=== PATIENT | female | born 1970 | race American Indian/Alaskan Native ===

== ENCOUNTER 2018-10-23 20:19 | Emergency (ER) | payer MEDICAID ==
--- NOTE | 2018-10-23 20:53 | Event Note ---
ED Screening Note Date of service: 10/23/18 Time: 20:51 ED Screening Note: This is a 47 y.o. F. that presents with an abscess to labia x 2 days. Patient reports discharge yesterday. This initial assessment/diagnostic orders/clinical plan/treatment(s) is/are subject to change based on patients health status, clinical progression and re- assessment by fellow clinical providers in the ED. Further treatment and workup at subsequent clinical providers discretion. Patient/guardian urged not to elope from the ED as their condition may be serious if not clinically assessed and managed. Initial orders include:
[2018-10-23] MEDS ORDERED: NORCO 5/325 PO ONE (22:42)
[2018-10-23] MEDS ORDERED: XYLOCAINE 1% 20 mL INFILTRATI ONE (22:43)
--- NOTE | 2018-10-23 22:59 | Emergency Department Report ---
ED Female HPI - General Chief complaint: Urogenital-Female Stated complaint: VAGINAL BOIL Time Seen by Provider: 10/23/18 20:51 Source: patient Mode of arrival: Ambulatory Limitations: No Limitations - History of Present Illness Initial comments: There is a 47-year-old -[place] female who presents for recurrent Bartholin cyst states [place]. Draining pus at this time there is no fevers no chills no nausea vomiting last menstrual cycle was 09/14/2018 patient is status post tubal ligation Complaint: vaginal discharge Onset/Timin -: days(s) Location: labia Severity: moderate Severity scale (0 -10): 5 Quality: sharp Consistency: constant Improves with: none Worsens with: urination Are you Now?: No Last Menstrual Period: 10/15/18 EDC: 07/22/19 - Related Data Sexually active: Yes Previous Rx's Medication Instructions Recorded Last Taken Type Clindamycin [Clindamycin CAP] 300 mg PO Q6H 10 Days #40 capsule 10/24/18 Unknown Rx traMADol [Ultram] 50 mg PO Q6HR PRN #12 tablet 10/24/18 Unknown Rx Allergies Allergy/AdvReac Type Severity Reaction Status Date / Time No Known Allergies Allergy Verified 10/23/18 20:21 ED Review of Systems ROS: Stated complaint: VAGINAL BOIL Other details as noted in HPI Constitutional: denies: chills, fever Eyes: denies: eye pain, eye discharge, vision change ENT: denies: ear pain, throat pain Respiratory: denies: cough, shortness of breath, wheezing Cardiovascular: denies: chest pain, palpitations Endocrine: no symptoms reported Gastrointestinal: denies: abdominal pain, nausea, diarrhea Genitourinary: other (bar all tholin cyst ). denies: urgency, dysuria, discharge Musculoskeletal: denies: back pain, joint swelling, arthralgia Skin: denies: rash, lesions Neurological: denies: as per HPI, headache, weakness, paresthesias Psychiatric: denies: anxiety, depression Hematological/Lymphatic: denies: easy bleeding, easy bruising ED Past Medical Hx - Social History Smoking Status: Never Smoker Substance Use Type: None - Medications Home Medications: Home Medications Medication Instructions Recorded Confirmed Last Taken Type Clindamycin [Clindamycin CAP] 300 mg PO Q6H 10 Days #40 capsule 10/24/18 Unknown Rx traMADol [Ultram] 50 mg PO Q6HR PRN #12 tablet 10/24/18 Unknown Rx ED Physical Exam - General Limitations: No Limitations General appearance: alert, in no apparent distress - Head Head exam: Present: atraumatic, normocephalic - Eye Eye exam: Present: normal appearance, PERRL, EOMI Pupils: Present: normal accommodation - ENT ENT exam: Present: normal orophraynx, mucous membranes moist - Neck Neck exam: Present: normal inspection, full ROM. Absent: tenderness, lymphadenopathy, thyromegaly - Respiratory Respiratory exam: Present: normal lung sounds bilaterally. Absent: respiratory distress, wheezes, stridor, chest wall tenderness - Cardiovascular Cardiovascular Exam: Present: regular rate, normal rhythm, normal heart sounds. Absent: systolic murmur, diastolic murmur, rubs, gallop - GI/Abdominal GI/Abdominal exam: Present: soft, normal bowel sounds. Absent: distended, tenderness, guarding, rebound, rigid, bruit, hernia - Rectal Rectal exam: Present: deferred - Extremities Exam Extremities exam: Present: normal inspection, full ROM, normal capillary refill. Absent: tenderness, calf tenderness - Back Exam Back exam: Present: normal inspection, full ROM. Absent: tenderness, CVA tenderness (R), CVA tenderness (L), muscle spasm, paraspinal tenderness, rash noted - Neurological Exam Neurological exam: Present: alert, oriented X3, CN II-XII intact, normal gait, reflexes normal. Absent: motor sensory deficit - Expanded Neurological Exam Expanded Patient oriented to: Present: person, place, time Speech: Present: fluid speech - Psychiatric Psychiatric exam: Present: normal affect, normal mood - Skin Skin exam: Present: warm, dry, intact, normal color. Absent: rash ED Course Vital Signs 10/23/18 10/23/18 20:23 23:31 Temperature 98.6 F Pulse Rate 88 Respiratory 16 18 Rate Blood Pressure 158/79 O2 Sat by Pulse 99 Oximetry - I & D Right Vagina Type of Procedure: Simple Site: right labia Blade Size: 11 I & D Procedure: betadine prep Progress: Right labial Bartholin's cyst minimal 2 cm erythematous fluctuant able to touch site clean with Betadine solution anesthesia 1% lidocaine 2 mL incision with 11 blade scalpel times one month with blunt forceps success moderate improvement drainage with 20 mL sterile saline wound left open patient given wound care i nstructions sterile peripad for drainage all bleeding is controlled patient tolerated procedure with minimal distress ED Medical Decision Making - Medical Decision Making This is a bartholin cyst see procedure note patient discharged on bleeding is controlled patient DC'd to home in stable condition follow with PCP in 2-3 days will DC home with prescription for clindamycin, Ultram PRN pain. Critical care attestation.: If time is entered above; I have spent that time in minutes in the direct care of this critically ill patient, excluding procedure time. ED Disposition Clinical Impression: Bartholin cyst Disposition: DC-01 TO HOME OR SELFCARE Is pt being admited?: No Does the pt Need Aspirin: No Condition: Stable Instructions: Bartholin Cyst (ED), Incision and Drainage (ED) Prescriptions: Clindamycin [Clindamycin CAP] 300 mg PO Q6H 10 Days #40 capsule traMADol [Ultram] 50 mg PO Q6HR PRN #12 tablet PRN Reason: Pain Referrals: PRIMARY CAREMD [Primary Care Provider] - 3-5 Days GELACIO MCKEON MD [Staff Physician] - 3-5 Days Forms: Work/School Release Form(ED) Time of Disposition: 00:09
[2018-10-24 00:10] LABS: Bilirubin,Urine NEG (Negative); Blood,Urine NEG (Negative); Color,Urine Yellow (Yellow); Protein,Urine <15 mg/dL mg/dL (Negative); Urobilinogen,Urine < 2.0 mg/dL (<2.0)
[2018-10-24 00:18] LABS: Mucus,Urine Few /HPF
[2018-10-24 00:22] LABS: RBC,Urine < 1.0 /HPF (0.0-6.0); WBC,Urine < 1.0 /HPF (0.0-6.0)
[2018-10-24 00:28] VITALS: BP 148/86
== END 2018-10-24 00:26 | disposition home or self-care (01) ==
LOC: ED 20:19
DX: N75.1 Abscess of Bartholin's gland (principal)
CPT/HCPCS: 81001

== ENCOUNTER 2020-11-29 07:44 | Emergency (ER) | payer MEDICAID, OTHER ==
[2020-11-29 08:08] VITALS: BP 178/106
[2020-11-29] MEDS ORDERED: ACETAMINOPHEN 500 MG TAB PO ONE (08:08)
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
== END 2020-11-29 09:50 | disposition home or self-care (01) ==
LOC: ED 07:44
DX: S13.4XXA Sprain of ligaments of cervical spine, initial encounter (principal); R51.9 Headache, unspecified; I10 Essential (primary) hypertension; Z79.899 Other long term (current) drug therapy; V89.2XXA Person injured in unspecified motor-vehicle accident, traffic, initial encounter; Y93.89 Activity, other specified; Y92.488 Other paved roadways as the place of occurrence of the external cause; Y99.8 Other external cause status
CPT/HCPCS: 70450; 72125; 99283

== ENCOUNTER 2021-05-09 07:54 | Emergency (ER) | payer MEDICAID, OTHER ==
[2021-05-09 08:20] VITALS: BP 137/87
[2021-05-09] MEDS ORDERED: ASPIRIN 325 MG TAB PO ONE (08:20)
[2021-05-09] MEDS ORDERED: KETOROLAC 60 MG/2 ML INJ IM ONE (09:01)
--- NOTE | 2021-05-09 09:05 | XRay Report ---
CHEST 2 VIEWS INDICATION / CLINICAL INFORMATION: chest pain. COMPARISON: None available. FINDINGS: SUPPORT DEVICES: None. HEART / MEDIASTINUM: No significant abnormality. LUNGS / PLEURA: No significant pulmonary or pleural abnormality. No pneumothorax. ADDITIONAL FINDINGS: No significant additional findings. IMPRESSION: 1. No acute findings. Signer Name: Oseas Layne MD Signed: 05/09/2021 9:00 AM Workstation Name: [id number]
--- NOTE | 2021-05-09 09:10 | Emergency Department Report ---
ED Chest Pain HPI - General Chief Complaint: Chest Pain Stated Complaint: CHEST PAIN/BACK PAIN Time Seen by Provider: 05/09/21 08:37 Source: patient Mode of arrival: Ambulatory Limitations: No Limitations - History of Present Illness Initial Comments: 50-year-old female with a past medical history of hypertension and obesity presents to the hospital with complaints of left-sided chest pain and left-sided back pain since this a.m. Patient works at [employer]. 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 It felt like a constant cramp worse with movement and palpation. Patient denies associated symptoms of shortness of breath, nausea, vomiting, diaphoresis, history of PE/DVT, calf tenderness, or leg edema. - Related Data Previous Rx's Medication Instructions Recorded Last Taken Type Clindamycin [Clindamycin CAP] 300 mg PO Q6H 10 Days #40 capsule 10/24/18 Unknown Rx HYDROcodone/APAP 5-325 [[place] 1 each PO Q6H #12 tablet 08/30/19 Unknown Rx 5-325 mg TAB] Naproxen 500 mg PO Q12H PRN #12 tablet 11/29/20 Unknown Rx Cyclobenzaprine [Flexeril 10 MG 10 mg PO TID PRN #15 tablet 05/09/21 Unknown Rx TAB] Ibuprofen [Motrin] 800 mg PO Q8HR PRN #30 tablet 05/09/21 Unknown Rx traMADoL [Ultram 50 MG tab] 50 mg PO Q6HR PRN #12 tablet 05/09/21 Unknown Rx Allergies Allergy/AdvReac Type Severity Reaction Status Date / Time No Known Allergies Allergy Verified 05/09/21 08:43 Heart Score - HEART Score History: Slightly suspicious EKG: Normal Age: < 45 Risk factors: > 3 risk factors or hx of atherosclerotic disease Troponin: < normal limit HEART Score: 2 - EKG Read Time Time EKG Completed: 08:05 EKG Read Time: 08:10 ED Review of Systems ROS: Stated complaint: CHEST PAIN/BACK PAIN Other details as noted in HPI Comment: All other systems reviewed and negative ED Past Medical Hx - Past Medical History Previous Medical History?: Yes Hx Hypertension: Yes - Surgical History Past Surgical History?: No - Family History Family history: CAD/ND - Social History Smoking Status: Never Smoker Substance Use Type: Alcohol, Prescribed - Medications Home Medications: Home Medications Medication Instructions Recorded Confirmed Last Taken Type Clindamycin [Clindamycin CAP] 300 mg PO Q6H 10 Days #40 capsule 10/24/18 Unknown Rx HYDROcodone/APAP 5-325 [[place] 1 each PO Q6H #12 tablet 08/30/19 Unknown Rx 5-325 mg TAB] Naproxen 500 mg PO Q12H PRN #12 tablet 11/29/20 Unknown Rx Cyclobenzaprine [Flexeril 10 MG 10 mg PO TID PRN #15 tablet 05/09/21 Unknown Rx TAB] Ibuprofen [Motrin] 800 mg PO Q8HR PRN #30 tablet 05/09/21 Unknown Rx traMADoL [Ultram 50 MG tab] 50 mg PO Q6HR PRN #12 tablet 05/09/21 Unknown Rx ED Physical Exam - General Limitations: No Limitations - Other Other exam information: General: No acute distress Head: Atraumatic Eyes: normal appearance ENT: Moist mucous membranes Neck: Normal appearance, no midline tenderness Chest: Clear to auscultation bilaterally, posterior left thoracic tenderness to palpation, left chest wall pain with movement CV: Regular rate and rhythm Abdomen: Soft, normal bowel sounds, nontender, nondistended, no rebound or guarding Back: Normal inspection Extremity: Normal inspection, full range of motion, no calf tenderness or leg edema Neuro: Alert O x 3, no facial asymmetry, speech clear, no gross motor sensory deficit Psych: Appropriate behavior Skin: No rash ED Course Vital Signs 05/09/21 08:13 Temperature 97.8 F Pulse Rate 76 Respiratory 20 Rate Blood Pressure 137/87 O2 Sat by Pulse 99 Oximetry BRANDI score - Brandi Score Age > 65: (0) No Aspirin use within the Past 7 Days: (0) No 3 or more CAD Risk Factors: (0) No 2 or more Angina events in past 24 hrs: (0) No Known CAD with more than 50% Stenosis: (0) No Elevated Cardiac Markers: (0) No ST Deviation Greater than 0.5mm: (0) No BRANDI Score: 0 ED Medical Decision Making - Lab Data Result diagrams: 05/09/21 08:38 05/09/21 08:38 Lab Results 05/09/21 05/09/21 Range/Units 08:38 08:38 WBC 6.4 (4.5-11.0) K/mm3 RBC 4.35 (3.65-5.03) M/mm3 Hgb 11.2 (10.1-14.3) gm/dl Hct 35.3 (30.3-42.9) % MCV 81 (79-97) fl MCH 26 L (28-32) pg MCHC 32 (30-34) % RDW 16.8 H (13.2-15.2) % Plt Count 251 (140-440) K/mm3 Lymph % (Auto) 20.3 (13.4-35.0) % Early % (Auto) 8.0 H (0.0-7.3) % Eos % (Auto) 1.2 (0.0-4.3) % Baso % (Auto) 0.5 (0.0-1.8) % Lymph # (Auto) 1.3 (1.2-5.4) K/mm3 Early # (Auto) 0.5 (0.0-0.8) K/mm3 Eos # (Auto) 0.1 (0.0-0.4) K/mm3 Baso # (Auto) 0.0 (0.0-0.1) K/mm3 Seg Neutrophils % 70.0 (40.0-70.0) % Seg Neutrophils # 4.5 (1.8-7.7) K/mm3 Sodium 137 (137-145) mmol/L Potassium 3.9 (3.6-5.0) mmol/L Chloride 105.6 (98-107) mmol/L Carbon Dioxide 21 L (22-30) mmol/L Anion Gap 14 mmol/L BUN 18 H (7-17) mg/dL Creatinine 0.6 (0.6-1.2) mg/dL Estimated GFR > 60 ml/min BUN/Creatinine Ratio 30 % Glucose 95 (65-100) mg/dL Calcium 9.7 (8.4-10.2) mg/dL Total Bilirubin < 0.20 (0.1-1.2) mg/dL AST 13 (5-40) units/L ALT 24 (7-56) units/L Alkaline Phosphatase 82 (35-129) units/L Troponin T < 0.010 (0.00-0.029) ng/mL Total Protein 6.8 (6.3-8.2) g/dL Albumin 3.7 L (3.9-5) g/dL Albumin/Globulin Ratio 1.2 % - EKG Data -: EKG Interpreted by Sd EKG shows normal: sinus rhythm, ST-T waves (No STEMI) Rate: normal - Radiology Data Radiology results: report reviewed CHEST 2 VIEWS INDICATION / CLINICAL INFORMATION: chest pain. COMPARISON: None available. FINDINGS: SUPPORT DEVICES: None. HEART / MEDIASTINUM: No significant abnormality. LUNGS / PLEURA: No significant pulmonary or pleural abnormality. No pneumothorax. ADDITIONAL FINDINGS: No significant additional findings. IMPRESSION: 1. No acute findings. 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 Pain is reproducible with movement and palpation. Patient has a low heart score with a normal EKG and negative troponin. Chest x- ray was negative. Vital signs unremarkable she will be treated symptomatically. Follow-up advised Critical Care Time: No Critical care attestation.: If time is entered above; I have spent that time in minutes in the direct care of this critically ill patient, excluding procedure time. ED Disposition Clinical Impression: Strain of chest wall Disposition: 01 HOME / SELF CARE / HOMELESS Is pt being admited?: No Does the pt Need Aspirin: No Condition: Stable Instructions: Chest Wall Pain Additional Instructions: Take the medication as prescribed. Follow-up with your doctor or doctor/clinic provided. Return if symptoms worsen as indicated by your discharge instructions. Prescriptions: Cyclobenzaprine [Flexeril 10 MG TAB] 10 mg PO TID PRN #15 tablet PRN Reason: Muscle Spasm Ibuprofen [Motrin] 800 mg PO Q8HR PRN #30 tablet PRN Reason: Pain , Severe (7-10) traMADoL [Ultram 50 MG tab] 50 mg PO Q6HR PRN #12 tablet PRN Reason: Pain Referrals: Your, PMD [Other] - 3-5 Days [facility] [Provider Group] - 3-5 Days ONRM COOPER MD [Staff Physician] - 3-5 Days Forms: Work/School Release Form(ED) Time of Disposition: 10:41
[2021-05-09 10:02] LABS: Alanine Aminotransferase 24 units/L (7-56); Albumin 3.7 g/dL (3.9-5); Blood Urea Nitrogen 18 mg/dL (7-17); Calcium 9.7 mg/dL (8.4-10.2); Hemolysis Index 0
[2021-05-09 10:07] LABS: BUN/Creatinine Ratio 30
[2021-05-09 10:09] LABS: Basophils % (Auto) 0.5 % (0.0-1.8); Eosinophils # (Auto) 0.1 K/mm3 (0.0-0.4); Eosinophils % (Auto) 1.2 % (0.0-4.3); Hematocrit 35.3 % (30.3-42.9); Hemoglobin 11.2 gm/dl (10.1-14.3); Lymphocytes # (Auto) 1.3 K/mm3 (1.2-5.4); Lymphocytes % (Auto) 20.3 % (13.4-35.0); Mean Corpuscular HGB Conc 32 % (30-34); Mean Corpuscular Volume 81 fl (79-97); Monocytes # (Auto) 0.5 K/mm3 (0.0-0.8); Platelet Count 251 K/mm3 (140-440); Red Blood Count 4.35 M/mm3 (3.65-5.03); Red Cell Distribution Width 16.8 % (13.2-15.2)
--- NOTE | 2021-05-11 09:00 | Electrocardiograph Report ---
[facility] Test Date: 2021-05-09 Test Time: 08:05:19 Pat Name: RAHEL NICOLE Department: Room: Gender: F Department Helper: ELENO : 1970 Requested By: JORGE PAUL Order Number: [id number] Reading MD: Reji Trejo Measurements Intervals [place] Rate: 75 P: 49 IN: 180 QRS: 53 QRSD: 88 T: 39 QT: 365 QTc: 409 Interpretive Statements Sinus rhythm No previous ECG available for comparison Electronically Signed On 05-11-2021 9:00:23 EDT by Reji Trejo
== END 2021-05-09 10:53 | disposition home or self-care (01) ==
LOC: ED 07:54
DX: S29.011A Strain of muscle and tendon of front wall of thorax, initial encounter (principal); X58.XXXA Exposure to other specified factors, initial encounter; Y93.89 Activity, other specified; Y92.89 Other specified places as the place of occurrence of the external cause; Y99.8 Other external cause status; I10 Essential (primary) hypertension; F10.20 Alcohol dependence, uncomplicated
CPT/HCPCS: 36415; 71046; 80053; 84484; 85025; 93005; 96372; 99284; J1885